=== PATIENT | female | born 1960 | race Caucasian/White ===

== ENCOUNTER → 2017-05-06 | Outpatient (CLI) | payer OTHER ==
--- NOTE | 2017-05-06 09:58 | RADIOLOGY REPORT PS360 ---
US THYROID COMPARISON: Ultrasound soft tissues right side the neck same date HISTORY: Patient feels nodule beneath right hemimandible there TECHNIQUE: Targeted ultrasound the thyroid FINDINGS: The isthmus of the gland is normal. There is a tiny hypoechoic and likely cystic lesion at the junction of the isthmus of the right lobe measuring 0.2 x 0.3 x 0.1 cm. Otherwise both the right and left lobe of the thyroid show homogeneous echogenicity. The right lobe measures 2.0 x 3.9 x 1.3 cm. The left lobe measures 2.0 x 4.2 x 1.4 cm. IMPRESSION: Possible tiny cyst right side the isthmus otherwise unremarkable ultrasound the thyroid gland
--- NOTE | 2017-05-06 10:01 | RADIOLOGY REPORT PS360 ---
US SOFT TISSUE HEAD/NECK COMPARISON: Ultrasound thyroid same date HISTORY: Patient feels lump just beneath the right hemimandible TECHNIQUE: Ultrasound evaluation right side the neck FINDINGS: There is a small hypoechoic lesion with central area of increased echogenicity at the palpable nodule site and the appearance suggests a normal to borderline enlarged but normal-appearing node. The surrounding soft tissues of neck are unremarkable. IMPRESSION: Probable jugulodigastric chain node which has a normal appearance
== END ==
LOC: RAD 08:30
DX: R22.1 Localized swelling, mass and lump, neck (principal)